=== PATIENT | male | born 1980 | race Caucasian/White ===

== ENCOUNTER 2024-08-12 09:13 | Outpatient (CLI) | payer OTHER ==
[2024-08-12 10:15] LABS: BASO % 0.6 % (0.1-1.2); EOS # 0.17 (0.04-0.54); EOS % 2.6 % (0.7-7.0); HEMATOCRIT 48.1 % (40.1-51.0); HEMOGLOBIN 16.4 g/dL (13.7-17.5); LYMPH # 1.92 (1.18-3.74); LYMPH % 29.5 % (19.3-53.1); MEAN CORPUSCULAR HEMOGLOBIN 29.6 pg (25.6-32.2); MONO % 9.2 % (4.7-12.5); NEUT # 3.77 (1.56-6.13); NEUT % 57.9 % (34.0-71.1); PLATELET COUNT 243 K/uL (163-369); RED BLOOD COUNT 5.54 M/uL (4.63-6.08); RED CELL DISTRIBUTION WIDTH 12.7 % (11.6-14.4)
[2024-08-12 10:24] LABS: PH,URINE 6.5 (5.0-8.0); URINE APPEARANCE Clear; URINE BILIRRUBIN Negative (NEGATIVE); URINE BLOOD Negative; URINE COLOR Yellow; URINE GLUCOSE Negative (NEGATIVE); URINE KETONE Negative (NEGATIVE); URINE LEUKOCYTE Negative; URINE NITRATE Negative; URINE PROTEIN Negative (NEGATIVE); URINE UROBILINOGEN 0.2 E.U./dl
[2024-08-12 10:25] LABS: URINE BACTERIA 7.3 uL (0.0-1933); URINE RBC 3.8 uL (0.0-20.8); URINE WBC 4.7 uL (0.0-23.2)
[2024-08-12 10:44] LABS: URINE EPITHELIAL CELLS 0.3 uL (0.0-38.8)
[2024-08-12 11:10] LABS: ALBUMIN 3.9 gm/dL (3.4-5.0); BILIRUBIN TOTAL 0.73 mg/dL (0.3-1.2); CALCIUM 9.6 mg/dL (8.5-10.1); CHOL HDL RATIO 3.2 (0-5.0); CREATININE SERUM 1.03 mg/dL (0.70-1.30); FREE TRIODOTIRONINE 2.92 pg/ml (2.18-3.98); GFR 78.82; GLOBULINA 3.3 G/DL (2.4-3.5); POTASSIUM 4.61 mEq/L (3.5-5.1); PROSTATIC SPECIFIC ANTIGEN 1.12 NG/ML (0.010-4.00); T4 FREE 0.88 NG/ML (0.76-1.46); TOTAL PROTEIN 7.2 gm/dL (6.4-8.2); TSH 2.37 uIU/mL (0.358-3.74)
== END 2024-08-12 09:20 | disposition home or self-care (01) ==
LOC: LAB 09:13
PROVIDERS: ATTEND Internal Medicine
DX: D64.9 Anemia, unspecified (principal); R10.9 Unspecified abdominal pain; E03.9 Hypothyroidism, unspecified; E78.5 Hyperlipidemia, unspecified; R80.9 Proteinuria, unspecified; E11.9 Type 2 diabetes mellitus without complications; N40.0 Benign prostatic hyperplasia without lower urinary tract symptoms; E55.9 Vitamin D deficiency, unspecified; D50.8 Other iron deficiency anemias; N39.0 Urinary tract infection, site not specified

== ENCOUNTER → 2024-10-04 09:10 | Outpatient (CLI) | payer OTHER ==
[2024-10-04 09:37] LABS: BASO % 0.9 % (0.1-1.2); EOS # 0.20 (0.04-0.54); EOS % 3.1 % (0.7-7.0); LYMPH # 1.91 (1.18-3.74); LYMPH % 29.3 % (19.3-53.1); MEAN PLATELET VOLUME 9.90 fl (9.4-12.4); MONO # 0.57 (0.24-0.82); MONO % 8.8 % (4.7-12.5); NEUT # 3.75 (1.56-6.13); NEUT % 57.6 % (34.0-71.1); RED CELL DISTRIBUTION WIDTH 12.3 % (11.6-14.4)
[2024-10-04 10:00] LABS: URINE APPEARANCE Clear; URINE BILIRRUBIN Negative (NEGATIVE); URINE BLOOD Negative; URINE COLOR Yellow; URINE GLUCOSE Negative (NEGATIVE); URINE KETONE Trace (NEGATIVE); URINE LEUKOCYTE Negative; URINE NITRATE Negative; URINE PROTEIN Negative (NEGATIVE); URINE UROBILINOGEN 0.2 E.U./dl
[2024-10-04 10:05] LABS: URINE BACTERIA 16.7 uL (0.0-1933); URINE EPITHELIAL CELLS 1.8 uL (0.0-38.8); URINE WBC 3.2 uL (0.0-23.2)
[2024-10-04 10:14] LABS: URINE CAST 0.00 uL (0.0-1.40); URINE RBC 0.7 uL (0.0-20.8)
[2024-10-04 10:53] LABS: ALT/SGPT 44.0 U/L (12-78); AST/SGOT 16.0 U/L (15-37); BILIRUBIN TOTAL 0.8 mg/dL (0.3-1.2); BUN CREA RATIO 15.0 (7.0-25.0); CHOL HDL RATIO 3.2 (0-5.0); CREATININE SERUM 1.0 mg/dL (0.70-1.30); GFR 81.55; GLOBULINA 3.3 G/DL (2.4-3.5); GLUCOSE FASTING 88.0 mg/dL (65-100); HDL 61.0 mg/dl (40-60); LDL 115.0 mg/dl (0-130); OSMOLALITY SERUM 285.0 MOSM/KG (275-295); PROSTATIC SPECIFIC ANTIGEN 0.863 NG/ML (0.010-4.00); VLDL 18.0 (0-39)
[2024-10-04 10:56] LABS: ob NEGATIVE (NEGATIVE)
== END | disposition home or self-care (01) ==
LOC: LAB 09:10
PROVIDERS: ATTEND Internal Medicine
DX: I10 Essential (primary) hypertension (principal); E03.9 Hypothyroidism, unspecified; Z01.810 Encounter for preprocedural cardiovascular examination; E55.9 Vitamin D deficiency, unspecified; F41.9 Anxiety disorder, unspecified

== ENCOUNTER 2024-10-04 09:27 | Outpatient (CLI) | payer OTHER | END 2024-10-04 09:37 | disposition home or self-care (01) | LOC: RAD 09:27 | PROVIDERS: ATTEND Internal Medicine | DX: I10 Essential (primary) hypertension (principal); E03.9 Hypothyroidism, unspecified; Z01.810 Encounter for preprocedural cardiovascular examination; E55.9 Vitamin D deficiency, unspecified; F41.9 Anxiety disorder, unspecified ==